=== PATIENT | female | born 1970 | race Caucasian/White ===

== ENCOUNTER → 2019-01-08 | Outpatient (CLI) | payer BC ==
--- NOTE | 2019-01-08 19:46 | REP ---
MRI bilateral temporomandibular joints without contrast: History: Chronic pain. No comparison imaging. Technique: Axial coronal and oblique sagittal images are acquired. T1 and T2-weighted sequences are included. Open and closed imaging is included with step opening cine views. MRI findings: The T2-weighted oblique sagittal images demonstrate small bilateral temporomandibular joint effusions, right a little more prominent than left. This may reflect synovitis. No deformity or malformation is seen in the mandibular condyles or temporal fossa on either side. The TMJ meniscus is positioned normally bilaterally in the closed and open position. Cine view show no additional abnormality. Impression: Small bilateral TMJ joint effusions. Otherwise negative temporomandibular joint MRI study. Electronically Signed by Paulo Bradford MD 01/08/2019 09:02 P
== END ==
LOC: M RAD 15:07
PROVIDERS: ATTEND Family Medicine
DX: G89.29 Other chronic pain (principal)

== ENCOUNTER → 2020-10-30 | Outpatient (CLI) | payer BC ==
--- NOTE | 2020-10-30 16:04 | REP ---
INDICATION: MIGRAINE W/O ORA. COMPARISON: None. TECHNIQUE: Axial and sagittal imaging planes are utilized for T1 and T2-weighted scans. Sequences include spin-echo, fast spin echo, FLAIR, and diffusion weighted sequences. FINDINGS: No bony calvarial lesion is seen. Craniocervical junction and upper cervical cord are normal in appearance. There is no MR evidence of significant paranasal sinus disease. No intraorbital abnormality is seen. The lateral, third, and fourth ventricles are normal in size and position. Long-white differentiation pattern is intact above and below the tentorium. There is no evidence of intracranial hemorrhage. No mass, infarction, extra-axial fluid collection or midline shift is seen. No abnormal white matter lesion is seen. IMPRESSION: Negative noncontrast brain MRI study. <Electronically signed by Justin Bradford > 10/30/20 1600
== END ==
LOC: M RAD 14:26
PROVIDERS: ATTEND Nurse Practitioner Family
DX: G43.019 Migraine without aura, intractable, without status migrainosus (principal)

== ENCOUNTER 2021-03-04 21:32 | Emergency (ER) | payer BC ==
[2021-03-04] MEDS ORDERED: LORA1TAB4 (22:00)
[2021-03-04] MEDS ORDERED: VENLAFAXINE (22:00)
[2021-03-04] MEDS ORDERED: METO10TA2 (22:00)
[2021-03-04] MEDS ORDERED: LITH150C (22:00)
[2021-03-04] MEDS ORDERED: ZOLP12.518 (22:00)
[2021-03-04] MEDS ORDERED: GABA-282 (22:00)
[2021-03-04 22:28] LABS: HEMATOCRIT 45.2 % (36.0-47.0); HEMOGLOBIN 14.2 g/dl (12.0-15.5); MEAN CORPUSCULAR HEMOGLOBIN 30.2 pg (27.0-33.0); MEAN CORPUSCULAR HGB CONC 31.4 g/dl (32.0-36.5); MEAN CORPUSCULAR VOLUME 96.2 fl (80.0-96.0); PLATELET COUNT, AUTOMATED 357 10^3/uL (150-450); WHITE BLOOD COUNT 12.9 10^3/uL (4.0-10.0)
[2021-03-04 23:06] LABS: AMPHETAMINES LEVEL URINE NEGATIVE (NEGATIVE); BARBITURATES URINE NEGATIVE (NEGATIVE); BENZODIAZEPINES URINE NEGATIVE (NEGATIVE); CANNABINOIDS URINE NEGATIVE (NEGATIVE); COCAINE METABOLITE URINE NEGATIVE (NEGATIVE); METHADONE URINE NEGATIVE (NEGATIVE); OPIATES URINE NEGATIVE (NEGATIVE); PHENCYCLIDINE URINE NEGATIVE (NEGATIVE)
[2021-03-04 23:07] LABS: ACETAMINOPHEN LEVEL < 2.0 UG/ML (10.0-30.0); ALBUMIN 4.2 GM/DL (3.2-5.2); ALT/SGPT 24 U/L (12-78); BILIRUBIN,DIRECT < 0.1 MG/DL (0.0-0.2); BILIRUBIN,TOTAL 0.2 MG/DL (0.2-1.0); BLOOD UREA NITROGEN 13 MG/DL (7-18); CALCIUM LEVEL 8.8 MG/DL (8.5-10.1); CARBON DIOXIDE LEVEL 31 MEQ/L (21-32); CHLORIDE LEVEL 106 MEQ/L (98-107); ETHYL ALCOHOL (ETHANOL) < 0.003 % (0.000-0.010); GLOMERULAR FILTRATION RATE > 60.0 (>51); GLUCOSE, FASTING 108 MG/DL (70-100); LITHIUM LEVEL < 0.20 MEQ/L (0.60-1.20); POTASSIUM SERUM 3.9 MEQ/L (3.5-5.1); SALICYLATE LEVEL < 1.7 MG/DL (5.0-30.0); SODIUM LEVEL 141 MEQ/L (136-145); TOTAL PROTEIN 7.2 GM/DL (6.4-8.2)
[2021-03-05 00:02] VITALS: BP 165/87
== END 2021-03-05 00:03 | disposition home or self-care (01) ==
LOC: M ED 21:32
DX: F43.0 Acute stress reaction (principal); F31.9 Bipolar disorder, unspecified; Z88.1 Allergy status to other antibiotic agents; Z79.899 Other long term (current) drug therapy

== ENCOUNTER → 2024-01-06 | Outpatient (CLI) | payer BC ==
[~2024-01-06] MED LIST: GABA-282; LITH150C; LORA1TAB23; METO10TA2; PROHANCE 279.3MG/ML 15ML VIAL ONE; PROHANCE 279.3MG/ML 5ML VIAL ONE; VENLAFAXINE; ZOLP12.518
== END ==
LOC: M PLAIMG 10:36
PROVIDERS: ATTEND Obstetrics & Gynecology
DX: Z91.89 Other specified personal risk factors, not elsewhere classified (principal)